=== PATIENT | male | born 1965 | race Hispanic/Latino ===

== ENCOUNTER 2022-11-25 16:48 | Emergency (ER) | payer OTHER ==
[~2022-11-25] VITALS: Ht 172.7 cm; Wt 126.1 kg
[2022-11-25] MEDS ORDERED: PERM60CR4 TP (19:52)
[2022-11-25] MEDS ORDERED: DIPH25CA53 PO (19:52)
[2022-11-25 20:04] VITALS: BP 158/87
== END 2022-11-25 20:05 | disposition home or self-care (01) ==
LOC: EDH 16:48
DX: B86 Scabies (principal)
CPT/HCPCS: 99282